=== PATIENT | male | born 1955 | race Caucasian/White ===

== ENCOUNTER 2021-07-07 11:03 | Emergency (ER) | payer OTHER, BC ==
[~2021-07-07] VITALS: Ht 185.4 cm; Wt 115.7 kg
== END 2021-07-07 14:37 | disposition home or self-care (01) ==
LOC: ED 11:03
DX: M25.511 Pain in right shoulder (principal); M54.2 Cervicalgia; E04.1 Nontoxic single thyroid nodule; Z91.041 Radiographic dye allergy status; V43.62XA Car passenger injured in collision with other type car in traffic accident, initial encounter; Y93.89 Activity, other specified; Y92.89 Other specified places as the place of occurrence of the external cause; Y99.8 Other external cause status

== ENCOUNTER 2021-08-03 14:00 | Emergency (ER) | payer BC ==
[~2021-08-03] VITALS: Wt 104.3 kg
[2021-08-03] MEDS ORDERED: PREDNISONE20 M1 PO (16:25)
[2021-08-03] MEDS ORDERED: PROVENTIL HFA6.7 GM INH (16:25)
== END 2021-08-03 16:29 | disposition home or self-care (01) ==
LOC: ED 14:00
DX: U07.1 COVID-19 (principal)

== ENCOUNTER 2021-11-22 10:52 | Emergency (ER) | payer BC ==
[~2021-11-22] VITALS: Ht 182.8 cm; Wt 98.0 kg
[~2021-11-22 10:52] MED LIST: PREDNISONE20 M1 PO; PROVENTIL HFA6.7 GM INH
[2021-11-22 11:22] LABS: BASO % 0.8 % (0.0-1.0); EOS # 0.1 10*3/uL (0.0-0.4); EOS % 2.7 % (1.0-4.0); HEMATOCRIT 40.6 % (42.0-52.0); LYMPH # 1.1 10*3/uL (1.3-4.4); LYMPH % 20.3 % (27.0-41.0); MEAN CELL VOLUME 88.8 fl (80.0-94.0); MEAN CORPUSCULAR HGB CONC 33.7 g/dl (33.0-37.0); MEAN PLATELET VOLUME 9.8 fl (9.6-12.3); MONO # 0.4 10*3/uL (0.1-1.0); MONO % 7.7 % (3.0-9.0); NEUT # 3.6 10*3/uL (2.3-7.9); NEUT % 68.1 % (47.0-73.0); PLATELET COUNT AUTOMATED 174 10*3/uL (130-400); RED BLOOD COUNT 4.57 10*6/uL (4.50-5.90); RED CELL DISTRI WIDTH 12.8 % (0-14.5); WHITE BLOOD COUNT 5.2 10*3/uL (4.8-10.8)
[2021-11-22 11:40] LABS: ALKALINE PHOSPHATASE 48 U/L (45-117); BUN 16 mg/dl (7-24); CHLORIDE 109 mmol/L (98-107); CREATININE 0.71 mg/dL (0.70-1.30); POTASSIUM 4.1 mmol/L (3.5-5.1); SGOT/AST 18 IU/L (3-35); SGPT/ALT 33 U/L (12-78); SODIUM 141 mmol/L (136-145); TOTAL PROTEIN 6.5 gm/dL (6.4-8.2)
[2021-11-22] MEDS ORDERED: Catapres-Tts 20.2 MG PO (12:04)
== END 2021-11-22 12:14 | disposition home or self-care (01) ==
LOC: ED 10:52
PROVIDERS: Nurse Practitioner Family
DX: I10 Essential (primary) hypertension (principal); Z91.041 Radiographic dye allergy status

== ENCOUNTER → 2023-04-06 | Outpatient (CLI) | payer OTHER, BC ==
[~2023-04-06] MED LIST changes: +Catapres-Tts 20.2 MG PO
== END | disposition home or self-care (01) ==
LOC: RAD 10:47
PROVIDERS: ATTEND Family Medicine
DX: M11.261 Other chondrocalcinosis, right knee (principal); M85.861 Other specified disorders of bone density and structure, right lower leg

== ENCOUNTER → 2023-04-23 | Outpatient (CLI) | payer SELFPAY | END | disposition home or self-care (01) | LOC: MRI 10:19 | PROVIDERS: ATTEND Family Medicine | DX: S83.281A Other tear of lateral meniscus, current injury, right knee, initial encounter (principal); S83.91XD Sprain of unspecified site of right knee, subsequent encounter; M85.861 Other specified disorders of bone density and structure, right lower leg; X58.XXXA Exposure to other specified factors, initial encounter; X58.XXXD Exposure to other specified factors, subsequent encounter; Y93.89 Activity, other specified; Y92.89 Other specified places as the place of occurrence of the external cause; Y99.8 Other external cause status ==

== ENCOUNTER → 2023-07-20 | Outpatient (CLI) | payer BC | END | disposition home or self-care (01) | LOC: ORTHO 12:00 | PROVIDERS: ATTEND Orthopaedic Surgery | DX: M11.261 Other chondrocalcinosis, right knee (principal); M17.11 Unilateral primary osteoarthritis, right knee ==

== ENCOUNTER 2023-08-28 19:11 | Emergency (ER) | payer BC ==
[~2023-08-28] VITALS: Ht 182.8 cm; Wt 97.5 kg
== END 2023-08-28 23:24 | disposition home or self-care (01) ==
LOC: ED 19:11
DX: S61.411A Laceration without foreign body of right hand, initial encounter (principal); S00.81XA Abrasion of other part of head, initial encounter; R07.81 Pleurodynia; Z91.041 Radiographic dye allergy status; Z79.899 Other long term (current) drug therapy; W18.39XA Other fall on same level, initial encounter; Y93.89 Activity, other specified; Y92.89 Other specified places as the place of occurrence of the external cause; Y99.8 Other external cause status

== ENCOUNTER 2023-10-09 16:44 | Emergency (ER) | payer BC ==
[~2023-10-09] VITALS: Ht 182.8 cm; Wt 99.3 kg
[2023-10-09 18:29] LABS: BILIRUBIN Negative (Negative); BLOOD Negative (Negative); CLARITY Clear (Clear); COLOR Yellow (Yellow); GLUCOSE Negative (Negative); KETONE Negative (Negative); LEUKO ESTERASE Negative (Negative); NITRITE Negative (Negative); PH 5.5 (4.5-8.0)
[2023-10-09 18:36] LABS: EPITHELIAL CELLS 0-2; RBC 0-2 rbc/hpf (0-2); WBC 0-2 wbc/hpf (0-5)
[2023-10-09 19:00] LABS: BASO # 0.1 10*3/uL (0.0-0.1); BASO % 0.8 % (0.0-1.0); EOS # 0.2 10*3/uL (0.0-0.4); HEMATOCRIT 42.7 % (42.0-52.0); LYMPH # 1.8 10*3/uL (1.3-4.4); LYMPH % 29.4 % (27.0-41.0); MEAN CELL VOLUME 90.7 fl (80.0-94.0); MEAN CORPUSCULAR HGB 29.7 pg (27.0-31.0); MEAN CORPUSCULAR HGB CONC 32.8 g/dl (33.0-37.0); MEAN PLATELET VOLUME 9.6 fl (9.6-12.3); MONO # 0.4 10*3/uL (0.1-1.0); MONO % 7.1 % (3.0-9.0); NEUT # 3.6 10*3/uL (2.3-7.9); NEUT % 59.5 % (47.0-73.0); PLATELET COUNT AUTOMATED 179 10*3/uL (130-400); RED BLOOD COUNT 4.71 10*6/uL (4.50-5.90); RED CELL DISTRI WIDTH 12.5 % (0-14.5); WHITE BLOOD COUNT 6.1 10*3/uL (4.8-10.8)
[2023-10-09 19:26] LABS: ALKALINE PHOSPHATASE 52 U/L (46-116); BUN 15 mg/dl (9-23); CHLORIDE 109 mmol/L (98-107); POTASSIUM 3.5 mmol/L (3.4-5.1); SGPT/ALT 23 U/L (5-49); TOTAL PROTEIN 6.4 gm/dL (6.0-8.0)
[2023-10-09] MEDS ORDERED: VIBRAMYCIN100 MG PO (19:40)
== END 2023-10-09 19:51 | disposition home or self-care (01) ==
LOC: ED 16:44
PROVIDERS: Emergency Medicine
DX: L03.818 Cellulitis of other sites (principal); K21.9 Gastro-esophageal reflux disease without esophagitis; I10 Essential (primary) hypertension; Z91.041 Radiographic dye allergy status; Z88.8 Allergy status to other drugs, medicaments and biological substances; Z98.890 Other specified postprocedural states

== ENCOUNTER → 2023-10-12 | Outpatient (CLI) | payer BC ==
[~2023-10-12] MED LIST changes: +VIBRAMYCIN100 MG PO
== END | disposition home or self-care (01) ==
LOC: US 11:48
PROVIDERS: ATTEND Emergency Medicine
DX: N50.3 Cyst of epididymis (principal); N43.3 Hydrocele, unspecified

== ENCOUNTER → 2023-11-10 | Outpatient (CLI) | payer BC | END | disposition home or self-care (01) | LOC: LAB 12:08 → US 13:00 | PROVIDERS: ATTEND Urology | DX: D40.0 Neoplasm of uncertain behavior of prostate (principal); N28.89 Other specified disorders of kidney and ureter ==

== ENCOUNTER → 2023-12-11 | Outpatient (CLI) | payer BC | END | disposition home or self-care (01) | LOC: CT 01:47 | PROVIDERS: ATTEND Urology | DX: N21.0 Calculus in bladder (principal); N43.3 Hydrocele, unspecified; K57.30 Diverticulosis of large intestine without perforation or abscess without bleeding; N28.1 Cyst of kidney, acquired; K76.89 Other specified diseases of liver ==

== ENCOUNTER → 2023-12-31 | Outpatient (CLI) | payer BC ==
[2023-12-31 07:41] LABS: BASO % 0.8 % (0.0-1.0); EOS # 0.3 10*3/uL (0.0-0.4); EOS % 6.2 % (1.0-4.0); HEMATOCRIT 43.8 % (42.0-52.0); LYMPH # 1.8 10*3/uL (1.3-4.4); LYMPH % 34.2 % (27.0-41.0); MEAN CORPUSCULAR HGB 30.6 pg (27.0-31.0); MEAN CORPUSCULAR HGB CONC 32.9 g/dl (33.0-37.0); MEAN PLATELET VOLUME 9.9 fl (9.6-12.3); MONO # 0.4 10*3/uL (0.1-1.0); MONO % 8.2 % (3.0-9.0); NEUT # 2.6 10*3/uL (2.3-7.9); NEUT % 50.4 % (47.0-73.0); PLATELET COUNT AUTOMATED 223 10*3/uL (130-400); RED BLOOD COUNT 4.71 10*6/uL (4.50-5.90); RED CELL DISTRI WIDTH 12.8 % (0-14.5); WHITE BLOOD COUNT 5.1 10*3/uL (4.8-10.8)
[2023-12-31 07:52] LABS: ACT PARTIAL THROMBO TIME 25.6 SECONDS (20.0-32.1)
[2023-12-31 08:21] LABS: ALKALINE PHOSPHATASE 51 U/L (46-116); BUN 14 mg/dl (9-23); CHLORIDE 107 mmol/L (98-107); POTASSIUM 4.6 mmol/L (3.4-5.1); SGPT/ALT 18 U/L (5-49); TOTAL PROTEIN 6.8 gm/dL (6.0-8.0)
== END | disposition home or self-care (01) ==
LOC: LAB 07:24
PROVIDERS: ATTEND Urology
DX: Z01.818 Encounter for other preprocedural examination (principal); D68.8 Other specified coagulation defects

== ENCOUNTER 2024-02-29 23:51 | Emergency (ER) | payer MEDICARE ==
[~2024-02-29] VITALS: Ht 185.4 cm; Wt 95.3 kg
[2024-03-01 01:03] LABS: BASO # 0.1 10*3/uL (0.0-0.1); EOS # 0.3 10*3/uL (0.0-0.4); EOS % 5.1 % (1.0-4.0); HEMATOCRIT 40.2 % (42.0-52.0); LYMPH # 1.8 10*3/uL (1.3-4.4); MEAN CORPUSCULAR HGB 30.8 pg (27.0-31.0); MEAN CORPUSCULAR HGB CONC 33.8 g/dl (33.0-37.0); MEAN PLATELET VOLUME 9.7 fl (9.6-12.3); MONO # 0.4 10*3/uL (0.1-1.0); MONO % 8.7 % (3.0-9.0); NEUT # 2.4 10*3/uL (2.3-7.9); PLATELET COUNT AUTOMATED 161 10*3/uL (130-400); RED BLOOD COUNT 4.42 10*6/uL (4.50-5.90); RED CELL DISTRI WIDTH 12.8 % (0-14.5); WHITE BLOOD COUNT 4.9 10*3/uL (4.8-10.8)
[2024-03-01 01:25] LABS: ACT PARTIAL THROMBO TIME 24.9 SECONDS (20.0-32.1)
[2024-03-01 01:27] LABS: ALKALINE PHOSPHATASE 45 U/L (46-116); BUN 13 mg/dl (9-23); CHLORIDE 110 mmol/L (98-107); SGPT/ALT 19 U/L (5-49)
== END 2024-03-01 01:42 | disposition home or self-care (01) ==
LOC: ED 23:51
PROVIDERS: Internal Medicine
DX: I10 Essential (primary) hypertension (principal); R42 Dizziness and giddiness; K21.9 Gastro-esophageal reflux disease without esophagitis; Z91.041 Radiographic dye allergy status; Z88.8 Allergy status to other drugs, medicaments and biological substances; Z90.49 Acquired absence of other specified parts of digestive tract

== ENCOUNTER → 2024-08-19 | Outpatient (CLI) | payer MEDICARE | END | disposition home or self-care (01) | LOC: US 12:42 | PROVIDERS: ATTEND Urology | DX: N28.89 Other specified disorders of kidney and ureter (principal) ==

== ENCOUNTER → 2024-09-20 | Outpatient (CLI) | payer MEDICARE | END | disposition home or self-care (01) | LOC: US 12:25 | PROVIDERS: ATTEND Urology | DX: N50.89 Other specified disorders of the male genital organs (principal); N43.3 Hydrocele, unspecified ==

== ENCOUNTER → 2025-02-02 | Outpatient (CLI) | payer MEDICARE ==
[2025-02-02 09:12] LABS: BASO # 0.1 10*3/uL (0.0-0.1); BASO % 0.6 % (0.0-1.0); EOS # 0.3 10*3/uL (0.0-0.4); EOS % 3.5 % (1.0-4.0); HEMATOCRIT 41.6 % (42.0-52.0); MEAN CELL VOLUME 92.9 fl (80.0-94.0); MEAN CORPUSCULAR HGB 30.8 pg (27.0-31.0); MEAN CORPUSCULAR HGB CONC 33.2 g/dl (33.0-37.0); MONO # 0.7 10*3/uL (0.1-1.0); MONO % 8.1 % (3.0-9.0); NEUT # 5.6 10*3/uL (2.3-7.9); NEUT % 66.7 % (47.0-73.0); PLATELET COUNT AUTOMATED 182 10*3/uL (130-400); RED BLOOD COUNT 4.48 10*6/uL (4.50-5.90); RED CELL DISTRI WIDTH 13.2 % (0-14.5); WHITE BLOOD COUNT 8.4 10*3/uL (4.8-10.8)
[2025-02-02 10:20] LABS: ALKALINE PHOSPHATASE 51 U/L (46-116); BUN 20 mg/dl (9-23); CHLORIDE 105 mmol/L (98-107); POTASSIUM 4.5 mmol/L (3.4-5.1); SGPT/ALT 27 U/L (5-49); TOTAL PROTEIN 6.4 gm/dL (6.0-8.0)
== END | disposition home or self-care (01) ==
LOC: LAB 08:51
PROVIDERS: ATTEND Urology
DX: D40.0 Neoplasm of uncertain behavior of prostate (principal); R53.83 Other fatigue

== ENCOUNTER → 2025-03-23 | Outpatient (CLI) | payer MEDICARE | END | disposition home or self-care (01) | LOC: CT 07:43 | PROVIDERS: ATTEND Nurse Practitioner | DX: K57.30 Diverticulosis of large intestine without perforation or abscess without bleeding (principal); K76.89 Other specified diseases of liver; N28.1 Cyst of kidney, acquired; R16.1 Splenomegaly, not elsewhere classified; N21.0 Calculus in bladder; N13.30 Unspecified hydronephrosis; K59.00 Constipation, unspecified ==